=== PATIENT | female | born 1970 | race Caucasian/White ===

== ENCOUNTER 2020-01-09 13:07 | Outpatient (CLI) | payer OTHER, SELFPAY | END 2020-01-09 13:08 | disposition home or self-care (01) | LOC: ANHAUDIO 13:10 | DX: H91.93 Unspecified hearing loss, bilateral (principal) | CPT/HCPCS: 92557; 92567 ==

== ENCOUNTER 2020-02-14 09:49 | Outpatient (RCR) | payer OTHER, SELFPAY | END 2020-02-14 23:59 | disposition home or self-care (01) | LOC: ANHAUDIO 09:49 | DX: Z46.1 Encounter for fitting and adjustment of hearing aid (principal); H91.93 Unspecified hearing loss, bilateral | CPT/HCPCS: V5160; V5261 ==

== ENCOUNTER 2020-04-10 10:02 | Emergency (ER) | payer OTHER, SELFPAY ==
[2020-04-10 10:02] VITALS: BP 174/97; PULSE 81; RESP 20; TEMP 36.9; O2SAT 98
--- NOTE | 2020-04-10 10:24 | ED.SKABFB ---
HPI - Skin/Abscess/Foreign Bdy General Chief complaint: Skin/Abscess/Foreign Body Stated complaint: boil in the crease of leg Source: patient Mode of arrival: ambulatory Limitations: no limitations History of Present Illness HPI narrative: This is a 49-year-old female that presents with abscess to her left groin area currently not draining patient has had this abscess for several days and initially was draining yellow and white material a discharge and currently is draining blood when she expresses it. There is some redness warmth and tenderness with mild radiation into her left groin area with no fever or chills no nausea vomiting no abdominal pain no dysuria no diarrhea constipation. The patient is a known diabetic and has an hemoglobin A1c within the last 3 months which she says it is around 6 to 7. complaint: abscess/boil Onset (ago): day(s) Location: genitals Severity: moderate Severity scale (1-10): 6 Quality: aching Pain Consistency: constant Relieving factors: rest Exacerbating factors: palpation Context: none Associated symptoms: denies other symptoms Treatments prior to arrival: none Related Data Home Medications Medication Instructions Recorded Confirmed chlorthalidone 25 mg PO DAILY 04/10/20 04/10/20 dexlansoprazole [Dexilant] 60 mg PO DAILY 04/10/20 04/10/20 losartan 100 mg PO DAILY 04/10/20 04/10/20 metformin 500 mg PO DAILY 04/10/20 04/10/20 metoprolol succinate 25 mg PO DAILY 04/10/20 04/10/20 pravastatin 20 mg PO DAILY 04/10/20 04/10/20 Allergies Allergy/AdvReac Type Severity Reaction Status Date / Time Pertussis Vaccines AdvReac Intermediate Swelling Verified 02/18/19 13:53 tetanus and diphtheria AdvReac Intermediate Swelling Verified 02/18/19 13:53 toxoids Review of Systems Review of Systems: All systems reviewed & are unremarkable except as noted in HPI and below PMFSH Past Medical History Medical History Diabetes mellitus HTN (hypertension) Exam Const: General: no acute distress and alert Orientation/consciousness: patient oriented x3 HENMT: Head: normal to inspection Eyes: Conjunctivae: conjunctivae normal Pupils: Equal, round and reactive pupils present EOM: EOMs intact bilaterally Neck: Neck: normal visual inspection and no lymphadenopathy Chest: Chest palpation & inspection: normal inspection of the chest Resp: Effort & Inspection: normal respiratory effort Cardio: Rate: regular rate Rhythm: regular rhythm GI: Auscultation: normal bowel sounds : General: Yes no CVA tenderness Skin: Wounds: wounds noted Other: Small area of erythema with some an area of drainage currently nonfluctuant currently not draining it is warm and tender to touch. Neuro: General: patient oriented x3, moves all extremities and no meningeal signs Extrem: General: normal to inspection and no pedal edema Psych: Mental Status: mental status grossly normal Affect: normal affect Attitude: cooperative Course Course Emergency Course: Patient received IM antibiotics ceftriaxone and received and IM Toradol and currently rates her pain at a 3/10. Critical Care Time Critical Care Time Critical Care Time: No Discharge Plan Discharge Clinical Impression: Abscess of skin Qualifiers: Site of cutaneous abscess: other site Qualified Code(s): L02.818 - Cutaneous abscess of other sites Patient Disposition: Home, Self-Care Condition: Stable Instructions: Antibiotic Form, Abscess (ED) Additional Instructions: Take medicine as prescribed, and follow-up with primary care physician if symptoms persist or worsen. Prescriptions: New clindamycin HCl 300 mg capsule 300 mg PO Q6H 10 Days Qty: 40 RF: 0 tramadol [Ultram] 50 mg tablet 50 mg PO Q6H PRN (Reason: pain) Qty: 20 RF: 0 No Action chlorthalidone 25 mg tablet 25 mg PO DAILY RF: 0 pravastatin 20 mg tablet 20 mg PO DAILY RF: 0 metoprolol s
[2020-04-10] MEDS: KETOROLAC (*BKC) 60 MG/2 ML VIAL IM (10:59)
[2020-04-10] MEDS: cefTRIAXone 1 GM VIAL IM (11:01)
[2020-04-10 11:13] VITALS: BP 147/88; PULSE 88; RESP 20; O2SAT 99
== END 2020-04-10 11:13 | disposition home or self-care (01) ==
PROVIDERS: Emergency Provider Emergency Medicine
DX: L02.818 Cutaneous abscess of other sites (principal)
CPT/HCPCS: 96372; 99283; 99284; J0696; J1885

== ENCOUNTER 2020-07-18 00:25 | Inpatient (IN) | payer OTHER, SELFPAY ==
[2020-07-18] VITALS (11 sets, daily range): BP systolic 113–172; BP diastolic 52–95; PULSE 66–94; RESP 18–20; TEMP 36.2–37.8; O2SAT 96–100; BMI 39.1
--- NOTE | ~2020-07-18 | CT_ITS ---
EXAMINATION: CT abdomen pelvis w con EXAM DATE: 07/18/2020 01:45 INDICATION: Abdominal pain. TECHNIQUE: Spiral CT of the abdomen and pelvis was performed following intravenous injection of 100 m L Omnipaque 350. Axial, coronal and sagittal images were reviewed. The dose-length product (DLP) fo r this examination was 1072.05 mGy-cm. The exposure was tailored according to patient size (auto mA exposure control), and iterative reconstruction (ASIR) was used as additional dose reduction techniqu e. There is no prior study for comparison. FINDINGS: There is hepatic steatosis without suspicious focal lesion identified. Spleen, adrenal glan ds, pancreas are unremarkable. Gallbladder is unremarkable. No biliary obstruction. Portal and spl enic veins are patent. Kidneys enhance symmetrically. Punctate left inferior calyceal stone. There i s no hydronephrosis. There is a 3.4 cm exophytic right renal cyst. The uterus is not identified and has likely been surgically resected. The bladder is undistended at time of imaging. There is no ret roperitoneal or pelvic lymphadenopathy. The appendix is not positively visualized. There is no pericecal inflammatory change to suggest appe ndicitis. The stomach and small bowel are unremarkable. There is expected amount of colonic stool. No free intraperitoneal gas. The heart is normal in size. There are no pericardial or pleural e ffusions. The lung bases are unremarkable. There are no osteoblastic or osteolytic lesions identifi ed. There is L4 limbus vertebral body and a right hip replacement. IMPRESSION: 1. No acute intra-abdominal findings. 2. Hepatic steatosis. 3. Left nephrolithiasis. Reviewed, dictated and finalized at location A.
--- NOTE | 2020-07-18 00:43 | ECG_ITS ---
Measurements Intervals [place] Rate: 82 P: 43 MO: 163 QRS: 1 QRSD: 97 T: -13 QT: 390 QTc: 456 Interpretive Statements SINUS RHYTHM POSSIBLE LEFT ATRIAL ENLARGEMENT NONSPECIFIC ST & T-WAVE ABNORMALITY- INFERIOR LEADS BASELINE ARTIFACT- I, II, AVR, AVL, AVF BORDERLINE ECG Electronically Signed On 07-18-2020 7:43:34 CDT by Chava Cunningham D.O.
[2020-07-18 00:59] LABS: Basophils Absolute Auto 0.04 K/mm3 (0.00-0.10); Basophils Percent Auto 0.2 % (0.0-1.0); Eosinophils Absolute Auto 0.02 K/mm3 (0.02-0.50); Eosinophils Percent Auto 0.1 % (1.0-6.0); Hematocrit 44.3 % (35.0-49.0); Hemoglobin 15.6 g/dL (12.0-15.0); Immature Granulocyte Percent A 0.5 % (0.0-0.0); Lymphocytes Absolute Auto 2.29 K/mm3 (1.10-4.50); Lymphocytes Percent Auto 11.8 % (18.0-42.0); Mean Corpuscular HGB Conc 35.2 g/dL (32.0-36.0); Mean Corpuscular Hemoglobin 30.4 pg (27.0-31.0); Mean Corpuscular Volume 86.2 fL (78.0-102.0); Mean Platelet Volume 10.3 fl (9.2-11.8); Monocytes Absolute Auto 0.93 K/mm3 (0.10-0.90); Monocytes Percent Auto 4.8 % (2.0-11.0); Neutrophils Absolute Auto 16.1 K/mm3 (1.7-7.2); Neutrophils Percent Auto 82.6 % (50.0-70.0); Platelet Count Result 386 K/mm3 (150-420); Red Blood Count 5.14 M/mm3 (4.20-5.40); Red Cell Distribution Width 12.2 % (11.6-14.4); White Blood Count 19.5 K/mm3 (4.8-10.8)
[2020-07-18] MEDS: ONDANSETRON INJ 4 MG/2 ML VIAL IV PUSH ×2 (01:04→08:26)
[2020-07-18] MEDS: SODIUM CHLORIDE 0.9% IV 1,000 ML 999 ML IV CONT (01:05)
[2020-07-18 01:26] LABS: Lactic Acid Reflex 1.9 mmol/L (0.4-2.0)
[2020-07-18 01:30] LABS: Alanine Aminotransferase 33 U/L (14-59); Albumin Level 3.9 g/dL (3.4-5.0); Alkaline Phosphatase 98 U/L (46-116); Anion Gap 12 mmol/L (8-16); Aspartate Amino Transferase 24 U/L (15-37); Bilirubin,Total 0.7 mg/dL (0.00-1.00); Blood Urea Nitrogen 21 mg/dL (7-18); Calcium 9.3 mg/dL (8.5-10.1); Carbon Dioxide 31 mmol/L (21-32); Chloride 89 mmol/L (98-108); Estimated CRCL calculation 49 ml/min; Estimated Glomerular Filt Rate 43; Glucose 262 mg/dL (70-99); Lipase 100 U/L (73-393); Osmolality Calculated 286 mOsm/kg (285-295); Potassium 2.6 mmol/L (3.5-5.1); Sodium 132 mmol/L (136-145); Troponin I 0.03 ng/mL (0.00-0.056)
--- NOTE | 2020-07-18 01:49 | ED.NAVMDI ---
HPI - Nausea/Vomiting/Diarrhea General Chief complaint: Nausea/Vomiting/Diarrhea Stated complaint: Vomiting Source: patient Mode of arrival: ambulatory Limitations: no limitations History of Present Illness HPI Narrative: This is a 50-year-old female that presents to the emergency department with some nausea with episodes of vomiting over the last 5 to 6 days has had difficulty keeping things down secondary to every time she tried to eat or take a sip of water she would have nausea/vomiting. Patient states that she had some coffee-ground emesis about 2 to 3 days ago currently emesis is clear, with no diarrhea constipation patient does complain of abdominal pain and discomfort with no dysuria no flank pain no fever chills. The patient does have a history of cyclical vomiting syndrome along with chronic marijuana use. Patient has a history of diabetes, hyperlipidemia, depression. Currently there is no chest pain no shortness of breath. MD elicited complaint: nausea, vomiting and abdominal pain Onset (ago): day(s) Description of vomiting: watery Description of diarrhea: blood Associated nausea: Yes Associated abdominal pain: Yes Location of pain: diffuse Pain consistency: intermittent Severity: moderate Quality: aching Exacerbating factors: eating Relieving factors: none Related Data Home Medications Medication Instructions Recorded Confirmed chlorthalidone 25 mg PO DAILY 04/10/20 07/18/20 dexlansoprazole [Dexilant] 60 mg PO DAILY 04/10/20 07/18/20 losartan 100 mg PO DAILY 04/10/20 07/18/20 metformin 500 mg PO DAILY 04/10/20 07/18/20 metoprolol succinate 25 mg PO DAILY 04/10/20 07/18/20 pravastatin 20 mg PO DAILY 04/10/20 07/18/20 albuterol sulfate 1 puff INHALATION PRN PRN 07/18/20 07/18/20 sitagliptin [Januvia] 100 mg PO DAILY 07/18/20 07/18/20 venlafaxine 75 mg PO DAILY 07/18/20 07/18/20 Allergies Allergy/AdvReac Type Severity Reaction Status Date / Time NSAIDS (Non-Steroidal Allergy Nausea and Verified 07/18/20 00:41 Anti-Inflamma Vomiting Pertussis Vaccines AdvReac Intermediate Swelling Verified 02/18/19 13:53 tetanus and diphtheria AdvReac Intermediate Swelling Verified 02/18/19 13:53 toxoids Review of Systems Review of Systems: All systems reviewed & are unremarkable except as noted in HPI and below Exam Const: General: no acute distress Orientation/consciousness: patient oriented x3 HENMT: Head: normal to inspection Eyes: Pupils: Equal, round and reactive pupils present Neck: Neck: normal visual inspection Chest: Chest palpation & inspection: normal inspection of the chest Resp: Effort & Inspection: normal respiratory effort Auscultation: clear to auscultation bilaterally Cardio: Rate: regular rate Rhythm: regular rhythm GI: GI Palp: Yes Soft to palpation and Yes Tenderness to palpation present (GI) : General: Yes no CVA tenderness Back/Spine/Pelvis: Back: no CVA tenderness Skin: General skin exam: normal color Rashes: no rashes Neuro: General: patient oriented x3 Extrem: General: normal to inspection Psych: Mental Status: mental status grossly normal Affect: normal affect Attitude: cooperative Thought content: Yes Normal thought content present Course Course Emergency Course: Reassessment of patient nausea and vomiting has improved with some IV Zofran, informed patient that that her potassium is depleted and would need a potassium replacement. Vital Signs Vital signs: Vital Signs Temperature 37.8 C H 07/18/20 00:38 Pulse Rate 94 07/18/20 00:38 Respiratory Rate 18 07/18/20 00:38 Blood Pressure 147/95 H 07/18/20 00:38 Pulse Oximetry 97 07/18/20 00:38 Temperature 37.8 C H 07/18/20 00:38 Pulse Rate 94 07/18/20 00:38 Respiratory Rate 18 07/18/20 00:38 Blood Pressure 147/95 H 07/18/20 00:38 Pulse Oximetry 97 07/18/20 00:38 MDM - Nausea/Vomiting/Diarrhea Lab Data Attestation: I reviewed the patient's lab results. Result diagr
[2020-07-18] MEDS: KCL 20 MEQ/SW 100 ML 100 ML 50 MEQ IVPB ×4 (01:50→17:26)
[2020-07-18 01:57] LABS: Add Urine Microscopic? YES; Appearance Urine Cloudy (Clear); Bilirubin Urine 1+ (Negative); Blood Urine 1+ (Negative); Color Urine Yellow (Yellow); Glucose Urine UA 2+ (Negative); Ketones Urine 1+ (Negative); Leukocyte Esterase Ur Negative (Negative); Nitrate Urine Negative (Negative); Protein Urine 1+ (Negative); Specific Grav Ur >= 1.030 (1.010-1.020); Urobilinogen Urine 0.2 mg/dL (0.2-1.0)
[2020-07-18 02:02] LABS: Bacteria Urine 4+ /hpf; Squamous Epithelial Cell Urine Moderate /hpf (Few); WBC Urine 0-3 /hpf (0-3)
[2020-07-18] MEDS: SODIUM CHLORIDE 0.9% IV 500 ML 999 ML IV CONT (03:00)
--- NOTE | 2020-07-18 03:20 | ADMGEN ---
This patient, Vijay Bansal, was admitted to 2nd Floor Room 202-2. Patient oriented to hospital policies and general routines including ID bracelet, bed and alarms, visiting hours, pain management, procedures, bathroom and other care routines, personal items, smoking policy, room service/diet, and visiting hours. Patient encouraged to report perceived risks to care and to ask questions if they do not understand what they are told or what they should do.
--- NOTE | 2020-07-18 03:35 | PC.NURSE ---
pt vomited clear liquid x1, broker in charge placed call to Dr Redd for orders
[2020-07-18] MEDS: METOCLOPRAMIDE HCL INJ 10 MG/2 ML VIAL IV PUSH ×4 (04:03→23:54)
[2020-07-18] MEDS: SODIUM CHLORIDE 0.9% IV 1,000 ML 100 ML IV CONT ×3 (04:04→23:58)
--- NOTE | 2020-07-18 07:30 | ECG_ITS ---
Measurements Intervals [place] Rate: 74 P: 42 CO: 156 QRS: 24 QRSD: 98 T: -12 QT: 468 QTc: 520 Interpretive Statements SINUS RHYTHM BORDERLINE ST-T WAVE ABNORMALITY- INFERIOR LEADS PROLONGED QT INTERVAL ABNORMAL ECG Electronically Signed On 07-18-2020 8:17:32 CDT by Chvaa Cunningham D.O.
[2020-07-18 07:50] LABS: Basophils Absolute Auto 0.02 K/mm3 (0.00-0.10); Basophils Percent Auto 0.1 % (0.0-1.0); Eosinophils Absolute Auto 0.02 K/mm3 (0.02-0.50); Eosinophils Percent Auto 0.1 % (1.0-6.0); Hematocrit 42.2 % (35.0-49.0); Hemoglobin 14.5 g/dL (12.0-15.0); Immature Granulocyte Absolute 0.06 K/mm3 (0.00-0.00); Immature Granulocyte Percent A 0.4 % (0.0-0.0); Lymphocytes Absolute Auto 2.16 K/mm3 (1.10-4.50); Lymphocytes Percent Auto 13.3 % (18.0-42.0); Mean Corpuscular HGB Conc 34.4 g/dL (32.0-36.0); Mean Corpuscular Hemoglobin 30.2 pg (27.0-31.0); Mean Corpuscular Volume 87.9 fL (78.0-102.0); Mean Platelet Volume 10.3 fl (9.2-11.8); Monocytes Absolute Auto 0.93 K/mm3 (0.10-0.90); Monocytes Percent Auto 5.7 % (2.0-11.0); Neutrophils Percent Auto 80.4 % (50.0-70.0); Platelet Count Result 361 K/mm3 (150-420); Red Cell Distribution Width 12.2 % (11.6-14.4); White Blood Count 16.2 K/mm3 (4.8-10.8)
--- NOTE | 2020-07-18 07:53 | PM.IMHP ---
H&P: HPI History of Present Illness Date/Time: 07/18/20 07:53 Chief complaint: Vomiting Narrative: Vijay Bansal is a 50 year old female admitted after midnight today with nausea, watery vomiting, bloody diarrhea, and diffuse intermittent achy abdominal pain. She continues to have dry heaves this morning when I went to visit her and examine her. Her N/V is made worse by eating and anxiety. Just having her breakfast tray brought into her room, started her nausea and dry heaving. Treating her with zofran, Protonix, Pepcid, Tums, capsaicin cream - and she is showing improvement this afternoon as she was able to eat a few bites of lunch and currently no N/V. Lipase is normal at 100, LFTs all within normal limits. Lactic acid 1.9, magnesium 1.9, sodium today is 134. Her potassium remains low at 2.7 despite replenishment. I have ordered 40 mEq of potassium IV for this morning with a repeat BMP at 2:00 p.m. today. her phosphorus levels 3.0 TSH 2.31. And her creatinine has improved from 1.3 to 1.08. She reports that she has had 2 episodes of voiding urine, denies that it is darker concentrated. Her glucose levels have improved to 183. She also had a fever at her admission of 37.8, that has improved to 36.7. Her white count was 19.5 in the ER and has improved to 16.2. Her H&H was also elevated which was further proof of her severe dehydration, and she continues to receive IV hydration of normal saline at 100 mL/hour. She presented to the emergency department with some nausea with episodes of vomiting over the last 5 to 6 days has had difficulty keeping things down secondary to every time she tried to eat or take a sip of water she would have nausea/vomiting. Patient stated that she had some coffee-ground emesis about 2 to 3 days ago; but in ED emesis was clear, with no diarrhea constipation patient does complain of abdominal pain and discomfort with no dysuria no flank pain no fever chills. The patient does have a history of cyclical vomiting syndrome along with chronic marijuana use. Patient has a history of diabetes, hyperlipidemia, depression. Currently there is no chest pain no shortness of breath. She does have a GI Specialist DR. Finn Amor in [place], [place] that she sees and they have diagnosed her as having cyclic marijuana vomiting syndrome and prescribed her Dexilant for this. She also has anxiety (on venlafaxine) and has an appointment to see a new psychiatrist in [place] on July 30. Her A1C is 7.9, instructed her to follow her diabetic diet better, increase her exercise, request a Reclaimer consult cap her PCP, and continue her on metformin and Januvia - if her N/V/D has completely resolved. She continues to use marijuana and reports having taken for his over the last 6 days. Her urine drug screen was positive for marijuana. She stated that if she does not use marijuana she tends to have worse nausea vomiting, so she uses the marijuana to treat her cyclic nausea/vomiting syndrome. Her primary care provider is Dr. Esther Cardenas at [facility] in [place], [place]. Review of Systems Review of Systems: All systems reviewed & are unremarkable except as noted in HPI and below Constitutional: Constitutional: Reports as per HPI, Denies excessive sweating, Denies headache(s), Denies increased appetite, Reports lethargy, Denies snoring and Denies weight gain Eyes: Eyes: Reports as per HPI, Denies exophthalmos, Denies diplopia, Denies floaters and Denies loss of peripheral vision ENT: Reports as per HPI, Reports Normal hearing present, Denies facial pain, Denies headache(s), Denies odynophagia and Denies tinnitus Cardiovascular: Cardiovascular: Reports as per HPI, Denies chest pain, Denies pedal edema and Denies leg edema Respiratory: Respiratory: Reports as per HPI, Denies cough, Denies dyspnea, Denies dyspnea on exertion and Denies snoring Gastrointestinal: Gastrointestinal: Reports as per HPI, Reports abdominal pain, Report
[2020-07-18 08:03] LABS: Amphetamine Screen Urine Negative (Negative); Barbiturate Screen Urine Negative (Negative); Benzodiazepines Screen Urine Negative (Negative); Cannabinoid Screen Urine Positive (Negative); Cocaine Screen Urine Negative (Negative); Methadone Screen Urine Negative (Negative); Opiate Screen Urine Negative (Negative); Phencyclidine Screen Urine Negative (Negative)
[2020-07-18 08:10] LABS: Glucose Point of Care 204 (65-105)
[2020-07-18 08:24] LABS: Alanine Aminotransferase 28 U/L (14-59); Albumin Level 3.4 g/dL (3.4-5.0); Alkaline Phosphatase 84 U/L (46-116); Anion Gap 9 mmol/L (8-16); Aspartate Amino Transferase 20 U/L (15-37); Bilirubin,Total 0.5 mg/dL (0.00-1.00); Blood Urea Nitrogen 17 mg/dL (7-18); Calcium 8.2 mg/dL (8.5-10.1); Carbon Dioxide 31 mmol/L (21-32); Chloride 94 mmol/L (98-108); Estimated CRCL calculation 59 ml/min; Estimated Glomerular Filt Rate 53; Glucose 224 mg/dL (70-99); Magnesium 1.9 mg/dL (1.8-2.4); Osmolality Calculated 286 mOsm/kg (285-295); Potassium 2.7 mmol/L (3.5-5.1); Sodium 134 mmol/L (136-145)
[2020-07-18 08:30] LABS: Thyroid Stimulating Hormone Reflex 2.31 u/IU/mL (0.36-3.74)
[2020-07-18 08:40] LABS: Hemoglobin A1C 7.9 % (<5.7)
[2020-07-18] MEDS: VENLAFAXINE HCL XR 75 MG CAP.ER.24H PO (09:59)
[2020-07-18] MEDS: CAPSAICIN 0.025% CREAM 60 GM TUBE 1 APPLIC TOPICAL ×2 (09:59→12:03)
[2020-07-18] MEDS: PANTOPRAZOLE SODIUM IV 40 MG VIAL IV PUSH ×2 (09:59→20:26)
[2020-07-18] MEDS: METOPROLOL SUCCINATE EXT REL 25 MG TABCR PO (10:00)
[2020-07-18] MEDS: LOSARTAN POTASSIUM 50 MG TABLET 100 MG PO (10:00)
[2020-07-18] MEDS: PRAVASTATIN SODIUM 20 MG TABLET PO (10:01)
[2020-07-18] MEDS: CHLORTHALIDONE 25 MG TABLET PO (10:03)
[2020-07-18 11:46] LABS: Glucose Point of Care 183 (65-105)
[2020-07-18] MEDS: metFORMIN HCL XR 500 MG TAB.SR.24H PO (12:03)
[2020-07-18 14:22] LABS: Anion Gap 11 mmol/L (8-16); Blood Urea Nitrogen 15 mg/dL (7-18); Calcium 8.1 mg/dL (8.5-10.1); Carbon Dioxide 28 mmol/L (21-32); Chloride 97 mmol/L (98-108); Estimated CRCL calculation 68 ml/min; Estimated Glomerular Filt Rate > 60; Glucose 203 mg/dL (70-99); Osmolality Calculated 288 mOsm/kg (285-295); Potassium 2.6 mmol/L (3.5-5.1); Sodium 136 mmol/L (136-145)
--- NOTE | 2020-07-18 14:28 | PC.NURSE ---
voices no c/o n/v. does not like the capsaicin cream, c/o makes her burn in the folds of elbowsand abd folds. does not want any more. up ad mandi to br. gait is steady. sr on tele. voices no c/o
[2020-07-18 16:51] LABS: Glucose Point of Care 169 (65-105)
[2020-07-18 20:56] LABS: Glucose Point of Care 170 (65-105)
[2020-07-18 21:29] LABS: Anion Gap 8 mmol/L (8-16); Blood Urea Nitrogen 13 mg/dL (7-18); Calcium 7.9 mg/dL (8.5-10.1); Carbon Dioxide 29 mmol/L (21-32); Chloride 102 mmol/L (98-108); Estimated CRCL calculation 60 ml/min; Estimated Glomerular Filt Rate 54; Glucose 179 mg/dL (70-99); Osmolality Calculated 292 mOsm/kg (285-295); Potassium 2.9 mmol/L (3.5-5.1); Sodium 139 mmol/L (136-145)
[2020-07-19] VITALS (7 sets, daily range): BP systolic 98–154; BP diastolic 45–86; PULSE 66–83; RESP 18–20; TEMP 35.9–37.2; O2SAT 95–99
--- NOTE | 2020-07-19 01:49 | PM.EVENT ---
Event Note Event Note Event Note: For 07/18/20: I have examined the patient and reviewed chart. I discussed the patient's care with A Jg CLARK and agree with her assessment and plan.
[2020-07-19] MEDS: METOCLOPRAMIDE HCL INJ 10 MG/2 ML VIAL IV PUSH (05:47)
[2020-07-19 08:25] LABS: Glucose Point of Care 157 (65-105)
[2020-07-19 08:45] LABS: Basophils Absolute Auto 0.04 K/mm3 (0.00-0.10); Basophils Percent Auto 0.4 % (0.0-1.0); Eosinophils Percent Auto 1.1 % (1.0-6.0); Hematocrit 39.4 % (35.0-49.0); Hemoglobin 13.3 g/dL (12.0-15.0); Immature Granulocyte Absolute 0.04 K/mm3 (0.00-0.00); Immature Granulocyte Percent A 0.4 % (0.0-0.0); Lymphocytes Absolute Auto 1.94 K/mm3 (1.10-4.50); Mean Corpuscular HGB Conc 33.8 g/dL (32.0-36.0); Mean Corpuscular Volume 88.9 fL (78.0-102.0); Mean Platelet Volume 10.2 fl (9.2-11.8); Monocytes Percent Auto 7.6 % (2.0-11.0); Neutrophils Absolute Auto 6.4 K/mm3 (1.7-7.2); Neutrophils Percent Auto 69.5 % (50.0-70.0); Platelet Count Result 284 K/mm3 (150-420); Red Blood Count 4.43 M/mm3 (4.20-5.40); Red Cell Distribution Width 12.5 % (11.6-14.4); White Blood Count 9.3 K/mm3 (4.8-10.8)
[2020-07-19 08:55] LABS: Anion Gap 9 mmol/L (8-16); Blood Urea Nitrogen 11 mg/dL (7-18); Calcium 7.8 mg/dL (8.5-10.1); Carbon Dioxide 28 mmol/L (21-32); Chloride 101 mmol/L (98-108); Estimated CRCL calculation 65 ml/min; Estimated Glomerular Filt Rate 60; Glucose 178 mg/dL (70-99); Osmolality Calculated 289 mOsm/kg (285-295); Potassium 2.9 mmol/L (3.5-5.1); Sodium 138 mmol/L (136-145)
[2020-07-19] MEDS: POTASSIUM CHLORIDE 20 MEQ TABLET 40 MEQ PO (09:27)
[2020-07-19] MEDS: PRAVASTATIN SODIUM 20 MG TABLET PO (09:28)
[2020-07-19] MEDS: VENLAFAXINE HCL XR 75 MG CAP.ER.24H PO (09:28)
[2020-07-19] MEDS: metFORMIN HCL XR 500 MG TAB.SR.24H PO (09:28)
[2020-07-19] MEDS: PANTOPRAZOLE SODIUM IV 40 MG VIAL IV PUSH (09:28)
[2020-07-19] MEDS: CHLORTHALIDONE 25 MG TABLET PO (09:29)
[2020-07-19] MEDS: LOSARTAN POTASSIUM 50 MG TABLET 100 MG PO (09:29)
[2020-07-19] MEDS: METOPROLOL SUCCINATE EXT REL 25 MG TABCR PO (09:29)
[2020-07-19] MEDS: KCL 20 MEQ/SW 100 ML 100 ML 50 MEQ IVPB ×3 (09:31→16:31)
[2020-07-19] MEDS: SODIUM CHLORIDE 0.9% IV 1,000 ML 100 ML IV CONT (09:40)
[2020-07-19 12:10] LABS: Glucose Point of Care 155 (65-105)
[2020-07-19 13:17] LABS: Potassium 2.9 mmol/L (3.5-5.1)
[2020-07-19] MEDS: POTASSIUM CHLORIDE 20 MEQ PACKET (FOR LIQUID) 40 MEQ PO (14:15)
[2020-07-19] MEDS: ALPRAZolam 0.25 MG TABLET PO (14:20)
--- NOTE | 2020-07-19 15:50 | PM.DS ---
DS: Admitting Diagnosis Admitting Diagnosis Admitting Diagnosis: Vomiting DS: Discharge Diagnosis Discharge Diagnosis (1) Acute hypokalemia: Code(s): E87.6 - Hypokalemia Status: Acute Assessment and Plan: ACUTE. Improved Secondary to nausea and vomiting EKG completed, sinus rhythm with a heart rate in the 70s On discharge patient potassium level at 3.3 given in edition 40 mEq and discharged home with potassium 40 mEq for 1 week and to follow-up with her primary care physician. Order also placed to repeat potassium in 1 week before visiting her doctor's office her potassium at admission was 2.6 (2) UTI (urinary tract infection): Qualifiers: Hematuria presence: without hematuria Urinary tract infection type: site unspecified Qualified Code(s): N39.0 - Urinary tract infection, site not specified Code(s): N39.0 - Urinary tract infection, site not specified Status: Acute Assessment and Plan: UA showed 1+ blood and 4+ bacteria, her urine cultures pending Patient discharged home with Bactrim x3 days Denies any symptoms of urinary tract infection (3) Cyclical vomiting with nausea: Code(s): R11.15 - Cyclical vomiting syndrome unrelated to migraine Status: Acute Assessment and Plan: ACUTE on CHRONIC. . Resolved Possibly related to cannabinoid hyperemesis syndrome as the patient continues to use marijuana, reporting at least 4 times in the last 6 days. Versus stress history of cyclical vomiting syndrome along with chronic marijuana use. CT abd showed: Hepatic steatosis. Left nephrolithiasis. no acute findings. Will need to follow-up with GI Specialist DR. Finn Amor in [place], [place] Continue Dexilant Discharged with Zosyn (4) Diabetes mellitus, type II: Code(s): E11.9 - Type 2 diabetes mellitus without complications Status: Acute Assessment and Plan: More controlled on discharge Blood sugars below 200 Continue home medication Follow-up with primary care physician (5) Acute renal failure: Code(s): N17.9 - Acute kidney failure, unspecified Status: Acute Assessment and Plan: Resolved improved BUN/creatinine and GFR within normal limit DS: Summary Time Spent with Patient Time attestation: Total time spent providing and/or coordinating discharge services:60 Exam Narrative: Exam Narrative: GENERAL: This is a well-nourished, well-developed patient, in no apparent distress. HEAD: normocephalic, atraumatic. EYES: PERRL. Sclera clear/white. Vision is grossly intact. EARS: External ears normal, auditory canals clear and without drainage, TMs normal without perforation. Hearing grossly intact. NOSE: External nose normal with no obvious nasal discharge, nares without redness, no rhinorrhea. THROAT: Mucous membranes moist, posterior pharynx clear. NECK: Neck supple, non-tender without lymphadenopathy, masses or thyromegaly. CARDIOVASCULAR: Regular rate and rhythm without murmurs, gallops, or rubs. RESPIRATORY: Clear to auscultation. Breath sounds equal bilaterally. No wheezes, rales, or rhonchi. GASTROINTESTINAL: Abdomen soft, non-tender, nondistended. Bowel sounds are active. No hepato-splenomegaly, or palpable masses. No guarding. SKIN: warm, intact with no suspicious lesions or rash, good texture and turgor. NEURO: awake, alert, and oriented to person, place and time. There were no obvious focal neurologic abnormalities. Steady gait EXTREMITIES: Normal range of motion. No edema. No calf tenderness. Negative Homans sign bilaterally. BACK: Nontender without deformity or crepitance. No flank tenderness. CONSTITUTIONAL: Denies fever, chills, sweats. EYES: Denies visual changes, redness, discharge. ENT: Denies rhinorrhea, congestion, sore throat, otalgia. CARDIOVASCULAR: Denies chest pain, palpitations, edema. RESPIRATORY: Denies dyspnea, wheezing, cough GASTROINTESTINAL: Denies abdo
--- NOTE | 2020-07-19 17:27 | P.PNCROSS_ITS ---
Event Note Event Note Event Note: For this patient encounter, I reviewed the ENVIRONMENTAL AIR SPECIALIST or PA documentation, treatment plan, and medical decision making; and I had [id number] time with this patient. She agrees to make a follow up appointment with Dr. Amor, bilingual middle school teacher.
--- NOTE | 2020-07-19 17:27 | PM.EVENT ---
Event Note Event Note Event Note: For this patient encounter, I reviewed the PORTRAIT PAINTER or PA documentation, treatment plan, and medical decision making; and I had [id number] time with this patient. She agrees to make a follow up appointment with Dr. Amor, vegetable ii farmworker.
[2020-07-19 18:14] LABS: Potassium 3.3 mmol/L (3.5-5.1)
[2020-07-19] MEDS: POTASSIUM CHLORIDE 20 MEQ TABLET PO (18:43)
--- NOTE | 2020-07-19 18:50 | PC.NURSE ---
Patient to be discharged home. Potassium level 3.3. All discharge instructions and education reviewed with patient. Patient states understanding. Denies any questions at this time. IV site removed, tip intact, Dressing applied to site. All belongings gathered together and sent with patient. This nurse accompanied patient to front door via wheelchair. Left via private vehicle with friend.
== END 2020-07-19 18:50 | disposition home or self-care (01) | DRG 425 ==
LOC: CHSED 02:22 → CHS2ND 07:32
PROVIDERS: Family Medicine; Nurse Practitioner; Admitting Provider Emergency Medicine; Emergency Provider Emergency Medicine; Visit Provider Emergency Medicine
DX: E87.6 Hypokalemia (principal); N17.9 Acute kidney failure, unspecified; N39.0 Urinary tract infection, site not specified; E11.9 Type 2 diabetes mellitus without complications; R11.15 Cyclical vomiting syndrome unrelated to migraine; F12.90 Cannabis use, unspecified, uncomplicated; I10 Essential (primary) hypertension; E11.65 Type 2 diabetes mellitus with hyperglycemia; E78.5 Hyperlipidemia, unspecified; F41.9 Anxiety disorder, unspecified; F32.9 Major depressive disorder, single episode, unspecified
CPT/HCPCS: 36415; 74177; 80048; 80053; 80307; 81001; 83036; 83605; 83690; 83735; 84100; 84132; 84443; 84484; 85025; 87040; 87086; 93005; 96361; 96374; 99284; 99285; A9270; C9113; J0696; J1815; J2405; J2765; J3480; J7030; J7040; Q9965

== ENCOUNTER 2020-12-24 07:25 | Outpatient (RCR) | payer OTHER, SELFPAY | END 2020-12-24 23:59 | disposition home or self-care (01) | LOC: ANHAUDIO 07:25 | DX: Z46.1 Encounter for fitting and adjustment of hearing aid (principal) | CPT/HCPCS: 99199 ==

== ENCOUNTER 2022-02-07 09:35 | Emergency (ER) | payer OTHER, SELFPAY ==
[2022-02-07 09:41] VITALS: BP 161/94; PULSE 105; RESP 16; TEMP 37; O2SAT 99
--- NOTE | 2022-02-07 10:05 | ED.DENTAL ---
HPI - Dental/Oral General Chief complaint: Dental/Oral Stated complaint: tooth pain with face swelling Source: patient Mode of arrival: ambulatory Limitations: no limitations History of Present Illness HPI Narrative: Patient presents for evaluation of left-sided facial swelling. She states three days ago, she noted left upper dental pain. Pain has improved but within the last 24 hrs she has noted left sided facial swelling. No fever, chills, nausea, vomiting. She had a toothache about one month ago. She went to the ER and was given amoxicillin and hydrocodone. Her symptoms improved. She is planning on having some dental work. No difficulty breathing or swallowing. She has diabetes and is on metformin and januvia. She is not checking her BS. She does smoke marijuana but denies tobacco use. No additional complaints or concerns. Related Data Home Medications Medication Instructions Recorded Confirmed chlorthalidone 25 mg PO DAILY 04/10/20 02/07/22 dexlansoprazole [Dexilant] 60 mg PO DAILY 04/10/20 02/07/22 losartan 100 mg PO DAILY 04/10/20 02/07/22 metformin 500 mg PO DAILY 04/10/20 02/07/22 metoprolol succinate 25 mg PO DAILY 04/10/20 02/07/22 pravastatin 20 mg PO DAILY 04/10/20 02/07/22 Januvia 100 mg PO DAILY 07/18/20 02/07/22 albuterol sulfate 1 puff INHALATION PRN PRN 07/18/20 02/07/22 venlafaxine 75 mg PO DAILY 07/18/20 02/07/22 Allergies Allergy/AdvReac Type Severity Reaction Status Date / Time NSAIDS (Non-Steroidal Allergy Nausea and Verified 02/07/22 09:51 Anti-Inflamma Vomiting Pertussis Vaccines AdvReac Intermediate Swelling Verified 02/07/22 09:51 tetanus and diphtheria AdvReac Intermediate Swelling Verified 02/07/22 09:51 toxoids Review of Systems Review of Systems: CONSTITUTIONAL: Denies fever, chills, or sweats. EYES: Denies visual changes, redness, or discharge. ENT: Reports left sided facial swelling. Denies rhinorrhea, congestion, sore throat, or otalgia. CARDIOVASCULAR: Denies chest pain, palpitations, or edema. RESPIRATORY: Denies cough or dyspnea. GASTROINTESTINAL: Denies abdominal pain, nausea, vomiting, or diarrhea. GENITOURINARY: Denies dysuria or hematuria. SKIN: Denies rash or itching. MUSCULOSKELETAL: Denies back pain, joint pain, or myalgia. NEUROLOGIC: Denies headache, numbness, dizziness, or weakness. PSYCHIATRIC: Denies anxiety or depression. PMFSH Past Medical History Medical History Diabetes mellitus HTN (hypertension) Toothache Family History Family History Mother No pertinent family history Social History Social History Smoking status: Unknown if ever smoked Alcohol intake: never Substance use: current Substance use type: marijuana Last use: daily Living arrangements: with family Gender identity (if verbalized by the patient): Female Spiritual care concerns: No Exam Narrative: GENERAL: Well-appearing, well-nourished, and in no acute distress. HEAD: Normocephalic, atraumatic. EYES: PERRLA and EOMI. ENT: Nares clear, no rhinorrhea or epistaxis. Mucous membranes moist. Oropharynx without tonsillar hypertrophy exudate or other lesions. Bilateral TMs pearly bruno nonbulging. There is swelling noted to left maxillary region. There is tenderness in gumline superior to tooth #13. NECK: Supple. No adenopathy or masses. No carotid bruits or JVD CHEST: Clear to auscultation. No respiratory distress. No wheezes rales or rhonchi HEART: Regular rate and rhythm. No murmur heard. Normal peripheral pulses. ABDOMEN: Soft, nontender, nondistended, normal active bowel sounds. EXTREMITIES: Normal range of motion. No edema. SKIN: Warm, dry, no rash. NEURO: No focal deficits. Alert and oriented x3. PSYCH: Normal mood and affect. Course Course Emergency Course: This is a 51-
== END 2022-02-07 10:05 | disposition home or self-care (01) ==
PROVIDERS: Emergency Provider Nurse Practitioner; PCP Nurse Practitioner Family
DX: K04.7 Periapical abscess without sinus (principal); E11.9 Type 2 diabetes mellitus without complications; I10 Essential (primary) hypertension
CPT/HCPCS: 99213; G0463

== ENCOUNTER 2023-01-24 09:59 | Emergency (ER) | payer BC, OTHER, SELFPAY ==
[2023-01-24] VITALS (9 sets, daily range): BP systolic 123–150; BP diastolic 67–94; PULSE 71–91; RESP 13–21; TEMP 36.5; O2SAT 95–99
--- NOTE | ~2023-01-24 | XR_ITS ---
EXAMINATION: XR chest 2V DATE: 01/24/2023 12:20 INDICATION: Shortness of breath. Midsternal chest pain. TECHNIQUE: Frontal and lateral views of the chest were obtained. COMPARISON: Chest 2 views 10/21/2016, CT abdomen and pelvis 07/18/2020 FINDINGS: The chest demonstrates clear lungs without pneumonia, pleural effusion, or pneumothorax. Th e heart size is normal. IMPRESSION: 1. No acute cardiopulmonary disease. Reviewed, dictated and finalized at location A. LITIES DIRECTOR
--- NOTE | 2023-01-24 11:53 | ECG_ITS ---
Measurements Intervals [place] Rate: 73 P: 20 KS: 159 QRS: 40 QRSD: 90 T: 141 QT: 388 QTc: 428 Interpretive Statements SINUS RHYTHM ST-T WAVE ABNORMALITY IN ANTEROLATERAL LEADS- CONSIDER ISCHEMIA BASELINE ARTIFACT- I, II, III, AVR, AVL, AVF ABNORMAL ECG COMPARED TO ECG 07/18/2020 08:01:29 PROLONGED QT INTERVAL NO LONGER PRESENT Electronically Signed On 01-24-2023 13:15:36 SURVEY RODMAN by Chava Cunningham D.O.
[2023-01-24 12:15] LABS: Hematocrit 42.4 % (37.0-47.0); Hemoglobin 14.3 g/dL (12.0-15.0); Immature Granulocyte Percent A 0.5 % (0-0.5); Mean Corpuscular HGB Conc 33.7 g/dl (32-36); Mean Corpuscular Hemoglobin 29.9 pg (26-34); Mean Corpuscular Volume 88.7 fl (80-100); Mean Platelet Volume 10.3 fl (7.4-10.4); Platelet Count Result 287 k/mm3 (150-375); Red Blood Count 4.78 M/mm3 (4.2-5.4); Red Cell Distribution Width 12.5 % (11.5-14.5); White Blood Count 6.6 K/mm3 (4.5-10.0)
[2023-01-24 12:16] LABS: Basophils Absolute Auto 0.1 K/mm3 (0.0-0.1); Basophils Percent Auto 0.9 % (0.2-1.2); Eosinophils Absolute Auto 0.1 K/mm3 (0-0.3); Eosinophils Percent Auto 1.8 % (0-4.4); Immature Granulocyte Absolute 0.03 K/mm3 (0.00-0.031); Lymphocytes Absolute Auto 1.79 K/mm3 (0.9-3.2); Lymphocytes Percent Auto 27.1 % (18.3-44.2); Monocytes Absolute Auto 0.5 K/mm3 (0.1-0.6); Monocytes Percent Auto 8.2 % (2.6-8.5); Neutrophils Absolute Auto 4.1 K/mm3 (1.3-6.7); Neutrophils Percent Auto 61.5 % (45.5-73.1)
[2023-01-24 12:26] LABS: Alanine Aminotransferase 28 U/L (6-35); Albumin Level 4.2 g/dL (3.5-5.1); Alkaline Phosphatase 114 U/L (38-126); Anion Gap 6 mmol/L (8-16); Aspartate Amino Transferase 25 U/L (14-36); Bilirubin,Total 0.5 mg/dL (0.2-1.3); Blood Urea Nitrogen 12 mg/dL (7-17); Carbon Dioxide 26 mmol/L (22-30); Chloride 100 mmol/L (98-107); Estimated CRCL calculation 98 ml/min; Estimated Glomerular Filt Rate > 60; Glucose 204 mg/dL (65-110); Potassium 3.8 mmol/L (3.4-5.0); Sodium 132 mmol/L (137-145)
--- NOTE | 2023-01-24 16:24 | ED.SOB ---
HPI - SOB/Dyspnea General Chief Complaint: Shortness of Breath/Dyspnea Stated Complaint: shortness of breath, nasal congestion Time Seen by Provider: 01/24/23 16:17 Source: patient Mode of arrival: ambulatory Limitations: no limitations History of Present Illness HPI Narrative: This is a 52-year-old female that presents to the emergency department for shortness of breath ongoing over the last couple of days. Reports cough and congestion. Reports worsening shortness of breath and wheezing which prompted her to be seen today. Denies chest pain. Related Data Home Medications Medication Instructions Recorded Confirmed chlorthalidone 25 mg tablet 25 mg PO DAILY 04/10/20 02/07/22 dexlansoprazole 60 mg 60 mg PO DAILY 04/10/20 02/07/22 capsule,biphase delayed release (Dexilant) losartan 100 mg tablet 100 mg PO DAILY 04/10/20 02/07/22 metformin 500 mg tablet,extended 500 mg PO DAILY 04/10/20 02/07/22 release 24 hr metoprolol succinate 25 mg 25 mg PO DAILY 04/10/20 02/07/22 tablet,extended release 24 hr pravastatin 20 mg tablet 20 mg PO DAILY 04/10/20 02/07/22 albuterol sulfate 90 mcg/actuation 1 puff inhalation PRN PRN 07/18/20 02/07/22 aerosol inhaler Shortness Of Breath sitagliptin phosphate 100 mg 100 mg PO DAILY 07/18/20 02/07/22 tablet (Januvia) venlafaxine 75 mg capsule,extended 75 mg PO DAILY 07/18/20 02/07/22 release 24 hr Allergies Allergy/AdvReac Type Severity Reaction Status Date / Time NSAIDS (Non-Steroidal Allergy Nausea and Verified 02/07/22 09:51 Anti-Inflamma Vomiting Pertussis Vaccines AdvReac Intermediate Swelling Verified 02/07/22 09:51 tetanus and diphtheria AdvReac Intermediate Swelling Verified 02/07/22 09:51 toxoids Review of Systems Review of Systems: CONSTITUTIONAL: Denies fever ENT: Reports rhinorrhea, congestion CARDIOVASCULAR: Denies chest pain, or edema. RESPIRATORY: Reports cough and dyspnea. All systems reviewed & are unremarkable except as noted in HPI and below PMFSH Past Medical History Medical History Diabetes mellitus HTN (hypertension) Toothache Family History Family History Mother No pertinent family history Social History Social History (Updated 01/24/23 @ 16:26 by Rose You PA-C) Smoking status: Never smoker Alcohol intake: never Substance use: current Substance use type: marijuana Last use: daily Living arrangements: with family Gender identity (if verbalized by the patient): Female Spiritual care concerns: No Exam Narrative: GENERAL: Well-appearing, well-nourished, and in no acute distress. HEAD: Normocephalic, atraumatic. EYES: EOMI. ENT: Nares clear, no rhinorrhea or epistaxis. Mucous membranes moist. Oropharynx without tonsillar hypertrophy exudate or other lesions. Bilateral TMs pearly bruno non-bulging NECK: Supple. No adenopathy or masses. CHEST: No respiratory distress. Diffuse expiratory wheezing. No rales or rhonchi HEART: Regular rate and rhythm. No murmur heard. Normal peripheral pulses. EXTREMITIES: Normal range of motion. No edema. SKIN: Warm, dry, no rash. NEURO: No focal deficits. Alert and oriented x3. PSYCH: Normal mood and affect Course Course Emergency Course: Patient's wheezing has cleared following nebulizer treatment. She reports feeling much better Vital Signs Vital signs: Vital Signs Temperature 97.7 F 01/24/23 10:43 Pulse Rate 75 01/24/23 10:43 Respiratory Rate 20 01/24/23 10:43 Blood Pressure 150/93 H 01/24/23 10:43 Pulse Oximetry 97 01/24/23 10:43 Oxygen Delivery Room Air 01/24/23 10:43 Temperature 97.7 F 01/24/23 10:43 Pulse Rate 77 01/24/23 16:56 Respiratory Rate 21 H 01/24/23 16:56 Blood Pressure 150/93 H 01/24/23 10:43 Pulse Oximetry 97 01/24/23 10:43 Oxygen Delivery Room Air 01/24/23 10:43 MDM - SOB
[2023-01-24] MEDS: IPRATROPIUM BR 0.02% INH SOLN 0.5 MG/2.5 ML VIAL INHALATION (16:43)
[2023-01-24] MEDS: ALBUTEROL SULFATE NEB 2.5 MG/3 ML INH INHALATION (16:43)
[2023-01-24] MEDS: predniSONE 20 MG TABLET 40 MG PO (17:04)
[2023-01-24 17:15] LABS: Influenza A QL RT-PCR Negative (Negative); Influenza B QL RT-PCR Negative (Negative); SARS-CoV-2 RNA PCR Negative
== END 2023-01-24 18:15 | disposition home or self-care (01) ==
PROVIDERS: Emergency Medicine; Emergency Provider Physician Assistant; PCP Nurse Practitioner Family
DX: J45.21 Mild intermittent asthma with (acute) exacerbation (principal); Z20.822 Contact with and (suspected) exposure to COVID-19; E11.9 Type 2 diabetes mellitus without complications; Z79.84 Long term (current) use of oral hypoglycemic drugs; I10 Essential (primary) hypertension
CPT/HCPCS: 36415; 71046; 80053; 85025; 87636; 93005; 94640; 99284; J7512